=== PATIENT | female | born 1940 | race Caucasian/White ===

== ENCOUNTER 2016-06-12 19:44 | Observation (INO) | payer OTHER, MEDICARE ==
[2016-06-12 19:50] VITALS: O2SAT 100
[2016-06-12] MEDS ORDERED: ONDANSETRON HCL 4 MG/2 ML VIAL ONE (19:50)
[2016-06-12] MEDS ORDERED: MORPHINE SULFATE 8 MG/ML INJ ONE (19:50)
[2016-06-12] MEDS ORDERED: ceFAZolin 2 GM PREMIX 50 ML ONE (19:52)
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
[2016-06-12] MEDS ORDERED: IOHEXOL 350 MG/ML 10 ML VIAL (for RAD DIAG) IV ONE (20:12)
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
[2016-06-12 20:30] VITALS: BP 158/72; PULSE 68; RESP 20; O2SAT 100
[2016-06-12] MEDS ORDERED: TETANUS/DIPHTHERIA TOXOID ADULT 0.5 ML VIAL IM ONE (20:30)
[2016-06-12] MEDS ORDERED: LIDOCAINE 2%/EPINEPHrine 1:100,000 30ML MDV INFIL ONE (20:30)
[2016-06-12] MEDS ORDERED: MORPHINE SULFATE 4 MG/ML INJ IV PUSH ONE (20:30)
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
[2016-06-12 20:46] LABS: AUTOMATED NEUTROPHIL # 8.2 TH/MM3 (1.8-7.7); BASOPHIL # 0.1 TH/MM3 (0-0.2); BASOPHIL % 0.6 % (0.0-2.0); EOSINOPHIL # 0.4 TH/MM3 (0-0.4); HEMATOCRIT 39.3 % (35.0-46.0); HEMO FLAGS DIFF FINAL; LYMPH % 24.3 % (9.0-44.0); MEAN CELL VOLUME 87.4 FL (80.0-100.0); MEAN CORPUSCULAR HEMOGLOBIN 27.8 PG (27.0-34.0); MEAN CORPUSCULAR HGB CONC 31.8 % (32.0-36.0); MONO % 5.9 % (0.0-8.0); NEUT % 66.2 % (16.0-70.0); PLATELET COUNT 334 TH/MM3 (150-450); RED CELL DISTRIBUTION WIDTH 16.1 % (11.6-17.2); WHITE BLOOD COUNT 12.5 TH/MM3 (4.0-11.0)
[2016-06-12 20:48] LABS: I-STAT POTASSIUM 4.8 MMOL/L (3.5-4.9)
[2016-06-12 21:00] VITALS: BP 167/73; PULSE 71; RESP 20; O2SAT 100
[2016-06-12] MEDS ORDERED: SODIUM CHLORIDE 0.9% FLUSH 5 ML FLUSH IVF PRN (21:00)
[2016-06-12] MEDS: SODIUM CHLORIDE 0.9% FLUSH 5 ML FLUSH IVF SCH (21:00)
[2016-06-12] MEDS ORDERED: ONDANSETRON HCL 4 MG/2 ML VIAL IV ONE (21:00)
[2016-06-12] MEDS ORDERED: ACETAMINOPHEN 325 MG TAB PO PRN (21:00)
[2016-06-12] MEDS ORDERED: DIPHTH/TETANUS/ACEL PERTUSSIS (BOOSTER) 0.5 ML VIAL/PFS IM ONE (21:00)
[2016-06-12] MEDS ORDERED: MORPHINE SULFATE 4 MG/ML INJ IV ONE (21:00)
[2016-06-12] MEDS: SODIUM CHLOR 0.9% 1000 ML INJ 1,000 ML IV SCH (21:00)
[2016-06-12] MEDS ORDERED: ceFAZolin 2 GM PREMIX 50 ML IV STA (21:00)
[2016-06-12] MEDS ORDERED: ONDANSETRON HCL 4 MG/2 ML VIAL IV PRN (21:00)
[2016-06-12 21:18] LABS: APTT (PATIENT) 23.6 SEC (24.3-30.1); INTERNATIONAL NORMALIZED RATIO 0.9 RATIO; PROTHROMBIN TIME - PATIENT 10.2 SEC (9.8-11.6)
[2016-06-12 21:30] VITALS: BP 177/77; PULSE 73; RESP 20; O2SAT 99
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
[2016-06-12 22:00] VITALS: BP 146/68; PULSE 80; RESP 20; O2SAT 100
[2016-06-12 23:00] VITALS: BP 110/56; PULSE 80; RESP 20; O2SAT 97
[2016-06-13] VITALS (8 sets, daily range): BP systolic 94–195; BP diastolic 56–79; PULSE 73–88; RESP 18–20; TEMP 97–98.7; O2SAT 95–100
[2016-06-13] MEDS: MORPHINE SULFATE 4 MG/ML INJ IV PUSH PRN ×7 (03:15→20:39)
[2016-06-13] MEDS ORDERED: DEXTROSE 50% IN WATER 50 ML VIAL(D50) IV PUSH PRN (08:00)
[2016-06-13] MEDS ORDERED: GLUCAGON 1 MG/ML VIAL OTHER PRN (08:00)
[2016-06-13] MEDS: SODIUM CHLORIDE 0.9% FLUSH 5 ML FLUSH IVF SCH ×2 (09:07→20:40)
[2016-06-13] MEDS: FAMOTIDINE 20 MG TAB PO SCH ×2 (09:07→20:39)
[2016-06-13] MEDS: INSULIN NovoLIN REGULAR SUPPLEMENTAL SCALE SQ SCH ×3 (12:41→20:53)
[2016-06-13] MEDS: SODIUM CHLOR 0.9% 1000 ML INJ 1,000 ML IV SCH (12:42)
[2016-06-13] MEDS: oxyCODONE/ACETAMINOPHEN 5 MG/325 MG TAB PO PRN ×2 (13:55→20:39)
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
[2016-06-13] MEDS: DOCUSATE SODIUM 50 MG/SENNA 8.6 MG TAB PO SCH (16:44)
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
[2016-06-14] MEDS: MORPHINE SULFATE 4 MG/ML INJ IV PUSH PRN ×4 (00:16→12:45)
[2016-06-14 01:51] VITALS: BP 145/65; PULSE 80; RESP 20; TEMP 97.2; O2SAT 94
[2016-06-14 02:14] VITALS: O2SAT 94
[2016-06-14] MEDS: oxyCODONE/ACETAMINOPHEN 5 MG/325 MG TAB PO PRN ×3 (02:46→15:30)
[2016-06-14] MEDS: SODIUM CHLOR 0.9% 1000 ML INJ 1,000 ML IV SCH (02:47)
[2016-06-14 04:32] VITALS: BP 145/65; PULSE 80; RESP 20; TEMP 97.2; O2SAT 96
[2016-06-14] MEDS: INSULIN NovoLIN REGULAR SUPPLEMENTAL SCALE SQ SCH ×2 (06:20→12:41)
[2016-06-14 08:00] VITALS: BP 144/60; PULSE 86; RESP 18; TEMP 99.4; O2SAT 97
[2016-06-14] MEDS: DOCUSATE SODIUM 50 MG/SENNA 8.6 MG TAB PO SCH (09:51)
[2016-06-14] MEDS: FAMOTIDINE 20 MG TAB PO SCH (09:51)
[2016-06-14] MEDS: SODIUM CHLORIDE 0.9% FLUSH 5 ML FLUSH IVF SCH (09:51)
[2016-06-14] MEDS ORDERED: INFLUENZA VIRUS VACCINE (QUADRIVALENT) 0.5 ML SYR IM ONE (10:00)
[2016-06-14 13:18] VITALS: BP 154/57; PULSE 78; RESP 18; TEMP 99.5; O2SAT 98
[2016-06-14 13:19] VITALS: RESP 18
--- NOTE | 2016-06-14 14:08 | HHI.FF ---
Face to Face Verification Diagnosis: (1) Closed head injury (2) Laceration of right elbow (3) Laceration of left hand (4) Lip laceration (5) Multiple contusions Physical Therapy Order: Evaluate and Treat, Improve ambulation, Strength and gait training Home Health Nursing Order: Wound care and dressing changes Nursing assessment with vital signs I have seen patient Kelli Ordoñez on 06/14/16. My clinical findings support the need for the requested home health care services because: Ltd mobility - disease progression Deconditioned w/ increased weakness Limited ability to care for self High risk of falls I certify that my clinical findings support that this patient is homebound because: Post-op weakness Impaired cognitive ability/safety Unsteady gait/balance Chaparrita Rankin Jun 14, 2016 14:08
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
[2016-06-14] MEDS ORDERED: OXYC1TAB63 PO (15:02)
== END 2016-06-14 17:20 | disposition home or self-care (01) ==
LOC: NEPI 19:44 → EDBD 20:44 → NEDA 20:44 → NEDH 06-13 02:23 → NEPFCDU 06-13 16:06
PROVIDERS: ADMIT Surgery; ATTEND Surgery
DX: S09.90XA Unspecified injury of head, initial encounter (principal); S51.011A Laceration without foreign body of right elbow, initial encounter; S61.412A Laceration without foreign body of left hand, initial encounter; S01.511A Laceration without foreign body of lip, initial encounter; V47.0XXA Car driver injured in collision with fixed or stationary object in nontraffic accident, initial encounter; Z95.1 Presence of aortocoronary bypass graft; Z95.5 Presence of coronary angioplasty implant and graft; I25.10 Atherosclerotic heart disease of native coronary artery without angina pectoris; I10 Essential (primary) hypertension; E11.9 Type 2 diabetes mellitus without complications; Z79.82 Long term (current) use of aspirin; Z23 Encounter for immunization; S20.01XA Contusion of right breast, initial encounter
CPT/HCPCS: 12002; 12011; 70450; 70486; 71010; 71260; 72125; 72170; 73070; 73120; 73560; 74177; 82435; 82565; 82947; 82948; 84132; 84295; 84520; 85025; 85610; 85730; 86850; 86900; 86901; 90471; 94150; 96374; 96375; 97110; 97116; 97163; 97167; 99285; 99291; G0378; G8987; G8988; J2270; J7030; Q9967; G0390; J0690; J2405